=== PATIENT | female | born 1980 | race Caucasian/White ===

== ENCOUNTER 2016-11-03 07:44 | Day surgery (SDC) | payer OTHER ==
[2016-10-30 18:13] VITALS: BMI 22.6
[~2016-11-03 07:44] MED LIST: SODIUM CHLORIDE 0.9% 1,000 ML IV SCH
[2016-11-03 08:18] VITALS: RESP 20; TEMP 98
[2016-11-03 11:15] VITALS: BP 110/70; PULSE 75
--- NOTE | 2016-11-03 13:29 | P.PCN ---
Preoperative Diagnosis: Twelve-lead ECG shows Sinus mechanism, normal heart rates Normal AR interval Normal QT interval
--- NOTE | 2016-11-03 13:50 | CE ---
TILT TABLE TEST DATE OF SERVICE: A 36-year-old female with recurrent episodes of syncope. She also has a history of tachycardia that was terminated with Valsalva maneuver on two different occasions. The patient was brought to the Tilt Table Lab in a fasting state. Written informed consent was obtained prior to the procedure. Baseline blood pressure 109/57 mmHg, heart rate 63 beats a minute. The patient was tilted upright at an angle of 70 degrees per protocol. There was no significant change in her heart rate or blood pressure. She did feel a little nauseous and funny in her legs, but she did not have any syncope. There was no evidence for neurocardiogenic syncope. IMPRESSION: Normal heart rate and blood pressure response to upright tilting on tilt table testing. RECOMMENDATION: Patient's history is consistent with neurocardiogenic syncope. She also has a history of AV node dependent tachycardia. I would recommend: 1. Increasing fluid and salt intake. 2. Lower extremity muscle strengthening. 3. Consideration for an EP study and for evaluation for syncope as well as for ICD management.
== END 2016-11-03 11:10 | disposition home or self-care (01) ==
LOC: CATHEP 07:44
PROVIDERS: ATTEND Internal Medicine Clinical Cardiac Electrophysiology
DX: R55 Syncope and collapse (principal); R00.2 Palpitations; R61 Generalized hyperhidrosis; R07.89 Other chest pain; I47.1 Supraventricular tachycardia; Z82.49 Family history of ischemic heart disease and other diseases of the circulatory system; F17.210 Nicotine dependence, cigarettes, uncomplicated
CPT/HCPCS: 81025; 93005; 93660

== ENCOUNTER → 2017-05-04 | Outpatient (CLI) | payer OTHER ==
--- NOTE | 2017-05-04 16:37 | XR ---
EXAMINATION TYPE: XR thoracic spine complete DATE OF EXAM: 05/04/2017 CLINICAL HISTORY: Fall with mid back pain. TECHNIQUE: Frontal, lateral, and swimmer's view of thoracic spine are obtained. COMPARISON: None. FINDINGS: Thoracic spine show satisfactory alignment without evidence of acute fracture or dislocatio n. Vertebral body heights and disc space heights are preserved. Visualized ribs are unremarkable. IMPRESSION: 1. Normal three-view thoracic spine
--- NOTE | 2017-05-04 16:38 | XR ---
Three-view lumbar spine INDICATION: Mid and low back pain fall 3 weeks prior FINDINGS: There 5 lumbar-type vertebral bodies. The pedicles are intact. Disc heights are preserved. Vertebral body heights are preserved. Alignment is normal. IMPRESSIONS: 1. Normal three-view lumbar spine
== END | disposition home or self-care (01) ==
LOC: RADXRMAIN 16:11
PROVIDERS: ATTEND Internal Medicine
DX: M54.5 Low back pain (principal); M54.6 Pain in thoracic spine
CPT/HCPCS: 72072; 72100

== ENCOUNTER 2018-03-14 09:51 | Day surgery (SDC) | payer OTHER ==
[2018-03-08 15:23] VITALS: BMI 20.1
[~2018-03-14 09:51] MED LIST changes: -SODIUM CHLORIDE 0.9% 1,000 ML IV SCH; +ceFAZolin IN SWFI 2 GM/20 ML SYRINGE IVP ONE
[2018-03-14] MEDS: SODIUM CHLORIDE 0.9% 1,000 ML IV SCH (10:36)
[2018-03-14] MEDS ORDERED: ISOPROTERENOL 250 MCG/1.25 ML SYR IV ONE (10:55)
[2018-03-14] MEDS ORDERED: fentaNYL (PF) 50 MCG/ML 2 ML AMP ONE (10:55)
[2018-03-14] MEDS ORDERED: MIDAZOLAM 2 MG/2 ML VIAL ONE (10:55)
[2018-03-14] MEDS ORDERED: PROPOFOL 10 MG/ML 20 ML VIAL IV ONE (10:55)
[2018-03-14] MEDS ORDERED: LIDOCAINE 1% INJ 10MG/ML (20 ML MDV) ONE ×2 (11:15→12:53)
[2018-03-14] MEDS ORDERED: LIDOCAINE 1% INJ 10MG/ML (20 ML MDV) SQ ONE ×2 (11:30→12:54)
[2018-03-14] MEDS ORDERED: ACETAMINOPHEN TAB 325 MG TAB PO PRN (13:46)
[2018-03-14] MEDS ORDERED: ACETAMINOPHEN IV (For NPO) 1,000 MG in EMPTY BAG 1 BAG IVPB ONE (13:46)
[2018-03-14] MEDS ORDERED: HYDROcodone/APAP 5-325MG 1 EACH TAB PO PRN (13:46)
[2018-03-14] MEDS: LACTATED RINGERS 1,000 ML IV SCH (14:53)
--- NOTE | 2018-03-14 15:40 | CE ---
CARDIAC ELECTROPHYSIOLOGY REPORT A 37-year-old female with recurrent palpitations associated with lightheadedness. She was brought in for diagnostic EP study and possible radiofrequency ablation, as clinically indicated. Patient was brought to the EP lab in a fasting state. Written informed consent was obtained prior to the procedure. The right and right groin was prepped and draped as per protocol. Later, the left groin was also prepped and venous sheaths were placed initially. Three venous sheaths and subsequently a 4-Slovenian sheath was placed in the right and left femoral veins. Via these, diagnostic catheters were placed in the high right atrium, His bundle area, RV and coronary sinus and later mapping ablation catheter was placed. Sinus cycle length 109 5 milliseconds. The AH interval 133 milliseconds, QRS 112 milliseconds QT 435 milliseconds. AH interval 69 milliseconds, HV interval 43 milliseconds. Sinus node recovery times of 605 104 100 milliseconds were 1612, [id number] milliseconds. AV node Wenckebach block 410 milliseconds. No delta waves. No slow pathway. VA Wenckebach block 405 the study 580 milliseconds. With ventricular extra stimulation there was a retrograde jump at 6:00 am back/four 560 milliseconds. The HIS cloud was tagged. Jacinda response was noted. Atrial extra stimulation was performed. Ventricular extra stimulation was performed. No SVT was induced. Burst stimulation was performed and then and atrial fibrillation nonsustained was induced that terminated spontaneously. Thereafter, Isuprel was started wide open and SVT was induced with atrial extra stimulation from the high right atrium at 5:50 am back/two 20 milliseconds. Ventricular pacing was performed. The VA AV response was noted. A long post pacing interval was noted. The post pacing interval minus tachycardia cycle length was 290 milliseconds. Separate times were short. The diagnosis of AV jacinda reentry was made. A long sheath was placed. Isuprel was stopped. The 3D mapping of the on in the septum was performed his cloud was tagged. Coronary sinus was tagged the tricuspid anulus was tagged. The slow pathway was mapped. RF ablation was performed. Junctional rhythm was obtained. Good power and temperature was noted. Following successful ablation, full diagnostic EP study was performed both on and off Isuprel. Straight pacing was performed from and RV. Extra stimulation after double extrastimuli was performed from the right ventricle, coronary sinus and high right atrium. No further episodes of SVT was induced At the end of the procedure, all catheters removed and patient was transferred back to telemetry. RESULT: 1. 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 2. Successful mapping and ablation of the slow pathway was performed and the tachycardia was rendered noninducible. 3. In the baseline sedated state, Isuprel in the baseline in the baseline state atrial fibrillation, nonsustained was induced, which terminated spontaneously in less than 30 seconds. PLAN: competitive shopper overnight and discharged home tomorrow and follow up thereafter. MC / DARIEN: [id number] /
[2018-03-14 19:48] VITALS: RESP 16
[2018-03-15 08:22] VITALS: BP 95/60; PULSE 60; TEMP 98
[2018-03-15] MEDS: LACTATED RINGERS 1,000 ML IV SCH (08:31)
[2018-03-15] MEDS: SODIUM CHLORIDE 0.9% 1,000 ML IV SCH (08:31)
--- NOTE | 2018-03-15 12:15 | P.DS ---
Providers Attending physician: Kevin Pelaez Primary care physician: [facility] Course: Patient is doing well today. No chest discomfort dizziness lightheadedness. Her groins are mildly tender but there is no hematoma which she is ablating in the hallways without any symptoms. 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 No cardiac medications Follow-up Holter monitor in about 6 weeks Follow-up with Dr. Smith once again thereafter Patient Condition at Discharge: Stable Plan - Discharge Summary Discharge Rx Participant: Yes New Discharge Prescriptions: Continue Albuterol Inhaler [Ventolin Hfa Inhaler] 1 - 2 puff INHALATION RT-Q6H PRN PRN Reason: Shortness Of Breath Discharge Medication List Albuterol Inhaler [Ventolin Hfa Inhaler] 1 - 2 puff INHALATION RT-Q6H PRN [History] Follow up Appointment(s)/Referral(s): Kevin Pelaez MD [STAFF PHYSICIAN] - 04/06/18 3:30 pm Activity/Diet/Wound Care/Special Instructions: Post EP study - Ablation instructions 1. Keep access sites dry for 2 days. 2. No heavy lifting or straining for 2 days. 3. Avoid bending the hips repeatedly for 2 days. 4. You may go up and down stairs slowly Call if the following is noted 1. Bleeding, increasing swelling or pain at the access sites. 2. Increasing chest discomfort, especially upon taking a deep breath. 3. Increasing shortness of breath, at rest or with exertion. 4. Undue cough / phlegm 5. Difficulty or pain while swallowing. 6. Pain or change in color in the extremities. 7. Fever, chills, rigors. 8. Increasing headache or neurologic symptoms. 9. Dizziness, fainting, palpitations No cardiac medications at discharge he Follow-up with Dr. Smith in about 2 weeks for a groin check Discharge Disposition: HOME SELF-CARE
== END 2018-03-15 11:12 | disposition home or self-care (01) ==
LOC: CATHEP 09:51 → 3OBS 13:35 → CATHEP 03-15 11:12
PROVIDERS: ATTEND Internal Medicine Clinical Cardiac Electrophysiology
DX: I47.1 Supraventricular tachycardia (principal); I48.91 Unspecified atrial fibrillation; Z82.49 Family history of ischemic heart disease and other diseases of the circulatory system; F17.210 Nicotine dependence, cigarettes, uncomplicated; J45.909 Unspecified asthma, uncomplicated
CPT/HCPCS: 93613; 93653; 84443; 81025; C1894; C1769 ×2; C1732; C1730 ×2; C1893; J2250; J2001; J3010; J2704

== ENCOUNTER → 2021-08-01 | Outpatient (CLI) | payer BC ==
--- NOTE | 2021-08-02 13:25 | CT ---
EXAMINATION TYPE: CT chest w con DATE OF EXAM: 08/01/2021 COMPARISON: None HISTORY: h/o lung nodule CT DLP: 146.7 mGycm Automated exposure control for dose reduction was used. CONTRAST: CT scan of the chest is performed with IV Contrast, patient injected with 100 mL of Isovue 300. FINDINGS: LUNGS: The lungs are grossly clear, there is no concerning parenchymal mass or nodule identified. T here is no pleural effusion or pneumothorax seen. The tracheobronchial tree is patent. MEDIASTINUM: There are no greater than 1 cm hilar or mediastinal lymph nodes. No pericardial effusi on is seen. Thoracic aorta is of normal caliber. The heart is not enlarged. UPPER ABDOMEN: No significant abnormality appreciated. OTHER: No additional significant abnormality is seen. IMPRESSION: No distinct abnormality appreciated.
== END | disposition home or self-care (01) ==
LOC: RADCTMAIN 18:48
PROVIDERS: ATTEND Internal Medicine Critical Care Medicine
DX: Z09 Encounter for follow-up examination after completed treatment for conditions other than malignant neoplasm (principal); Z87.09 Personal history of other diseases of the respiratory system
CPT/HCPCS: 71260; Q9967

== ENCOUNTER → 2022-08-06 | Outpatient (CLI) | payer OTHER ==
--- NOTE | 2022-08-06 11:58 | CT ---
EXAMINATION TYPE: CT chest w con DATE OF EXAM: 08/06/2022 COMPARISON: 01/16/2022 HISTORY: Solitary pulmonary nodule. CT DLP: 131.1 mGycm Automated exposure control for dose reduction was used. TECHNIQUE: CT scan of the chest is performed with IV Contrast, patient injected with 70ml mL of Isovue 300. MIP Images are created on CT scanner and reviewed. 3D reconstructed images are created on an independent workstation and reviewed. FINDINGS: LUNGS: The tracheobronchial tree is patent. Right apical pleural thickening. No evidence of focal pne umonia, pleural effusion or pneumothorax. Mild emphysematous changes. Subpleural nodule superior segment right lower lobe measuring 5 mm retrospectively stable. Stable add itional subpleural nodularity measuring less than 5 mm in bilateral lower lobe likely inflammatory si milar to the prior exam. Subsegmental changes posterior both lung bases stable compatible with atelec tasis. A 4 mm anterior segment right upper lobe subpleural nodule axial image 46 stable. 2-3 mm subpl eural nodule superior segment left upper lobe axial image 40 stable.. MEDIASTINUM: No pericardial effusion is seen. Aorta of normal caliber. Residual thymic tissue noted. Prominent pretracheal lymph node stable measuring short axis I.2 mm. Additional shotty adenopathy st able. OTHER: Hypertrophic changes spine. IMPRESSION: 1. Multiple stable 5 mm less pulmonary nodules which have a benign appearance unchanged from prior ex am. Follow-up on a 6 month basis to confirm stability over a two-year period recommended
== END | disposition home or self-care (01) ==
LOC: RADCTMAIN 11:28
PROVIDERS: ATTEND Internal Medicine Critical Care Medicine
DX: R91.8 Other nonspecific abnormal finding of lung field (principal)
CPT/HCPCS: 71260; Q9967